=== PATIENT | female | born 1945 | race Two or more races ===

== ENCOUNTER 2016-06-11 13:30 | Emergency (ER) | payer OTHER ==
[~2016-06-11] VITALS: Ht 157.5 cm; Wt 66.7 kg
[2016-06-11 13:42] VITALS: BP 151/46
== END 2016-06-11 19:25 | disposition left against medical advice (07) ==
LOC: ER 13:33
DX: S01.91XA Laceration without foreign body of unspecified part of head, initial encounter (principal); W18.39XA Other fall on same level, initial encounter; Y93.89 Activity, other specified; Y99.9 Unspecified external cause status; Y92.89 Other specified places as the place of occurrence of the external cause; Z53.21 Procedure and treatment not carried out due to patient leaving prior to being seen by health care provider

== ENCOUNTER 2016-06-29 16:12 | Emergency (ER) | payer OTHER ==
[~2016-06-29] VITALS: Ht 157.5 cm; Wt 59.9 kg
[2016-06-29 16:30] VITALS: BP 152/77
[2016-06-29] MEDS ORDERED: ONDANSETRON HCL 4 MG/2 ML VIAL IM ONE (16:45)
[2016-06-29] MEDS ORDERED: TETANUS-DIPTH-ACEL PERTUSSIS 0.5ML SYRG IM ONE (16:45)
[2016-06-29] MEDS ORDERED: HYDROmorphone HCL 2 MG/ML VL IM ONE (16:45)
[2016-06-29] MEDS ORDERED: LIDOCAINE 1% HCL (LOCAL ANESTH.) INJ 20ML MDV IJ ONE (16:45)
[2016-06-29] MEDS ORDERED: BACITRACIN TOP OINT 1 UD PKG TOP ONE (18:00)
[2016-06-29] MEDS ORDERED: cefTRIAXone SOD 1,000 MG VL IM ONE (18:00)
== END 2016-06-29 18:32 | disposition home or self-care (01) ==
LOC: EDUNIT# 16:12 → ER 16:12
DX: S51.811A Laceration without foreign body of right forearm, initial encounter (principal); I11.0 Hypertensive heart disease with heart failure; I50.9 Heart failure, unspecified; Z23 Encounter for immunization; Z88.8 Allergy status to other drugs, medicaments and biological substances; W01.0XXA Fall on same level from slipping, tripping and stumbling without subsequent striking against object, initial encounter; Y93.89 Activity, other specified; Y99.8 Other external cause status; Y92.009 Unspecified place in unspecified non-institutional (private) residence as the place of occurrence of the external cause
CPT/HCPCS: 12036; 90471; 90715; 96372; 99284; J0696; J1170; J2001; J2405

== ENCOUNTER 2016-07-01 08:17 | Emergency (ER) | payer OTHER ==
[~2016-07-01] VITALS: Ht 210.8 cm; Wt 66.2 kg
[2016-07-01 09:28] VITALS: BP 147/77
== END 2016-07-01 10:05 | disposition home or self-care (01) ==
LOC: ER 08:21
DX: S51.811D Laceration without foreign body of right forearm, subsequent encounter (principal); I11.0 Hypertensive heart disease with heart failure; I50.9 Heart failure, unspecified; Z88.6 Allergy status to analgesic agent

== ENCOUNTER 2016-08-13 17:48 | Emergency (ER) | payer OTHER ==
[~2016-08-13] VITALS: Ht 157.5 cm; Wt 60.8 kg
[~2016-08-13 17:48] MED LIST: AMLO5TAB2 PO; CEPH500C PO; TRAM50TA2 PO
[2016-08-13] MEDS ORDERED: CLINDAMYCIN 900MG IV 50 ML IV ONE (22:00)
[2016-08-13 22:50] LABS: Basophils # (auto) 0.1 uL; Basophils % (auto) 0.4 % (0.0-2.0); Eosinophils # (auto) 0.2 uL; Hematocrit 40.8 % (36.0-46.0); Hemoglobin 13.6 g/dL (12.2-16.2); Lymphocytes # (auto) 2.8 uL; Lymphocytes % (auto) 23.4 % (10.0-50.0); Mean Corpuscular Hemoglobin 31.5 pg (28.0-32.0); Mean Corpuscular Hgb Conc. 33.3 g/dL (32.0-36.0); Mean Corpuscular Volume 94.8 fL (80.0-100.0); Mean Platelet Volume 8.7 fL (7.4-10.4); Monocytes # (auto) 0.8 uL; Neutrophils # (auto) 8.1 uL; Neutrophils % (auto) 67.2 % (37.0-80.0); Platelet Count (auto) 225 10^3/uL (140-450); Red Cell Distribution Width 14.9 % (11.6-16.0)
[2016-08-13 23:00] LABS: Albumin 4.1 g/dL (3.4-5.0); Bilirubin, Total 0.2 mg/dL (0.2-1.0); Calcium 9.1 mg/dL (8.5-10.1); Potassium 3.6 mmol/L (3.5-5.1); Total Protein 8.1 g/dL (6.4-8.2)
[2016-08-13] MEDS ORDERED: HYDROcodone-ACET 7.5/325MG TAB PO ONE (23:15)
[2016-08-14 03:01] VITALS: BP 163/92
[2016-08-14] MEDS ORDERED: BACITRACIN-POLYMYXIN B TOPICAL OINT UD TOP ONE (03:15)
== END 2016-08-14 02:31 | disposition home or self-care (01) ==
LOC: ER 17:49
DX: L03.113 Cellulitis of right upper limb (principal); I10 Essential (primary) hypertension; Z88.8 Allergy status to other drugs, medicaments and biological substances; Z48.01 Encounter for change or removal of surgical wound dressing
CPT/HCPCS: 36415; 80053; 85025; 86141; 96365; 96366; 99285; J3490

== ENCOUNTER → 2016-08-15 | Outpatient (CLI) | payer OTHER | END | disposition home or self-care (01) | LOC: LAB 09:59 | PROVIDERS: ATTEND Internal Medicine Pulmonary Disease | DX: R91.8 Other nonspecific abnormal finding of lung field (principal) | CPT/HCPCS: 86635 ==

== ENCOUNTER 2017-03-11 09:11 | Emergency (ER) | payer OTHER ==
[2017-03-11 10:10] LABS: Basophils # (auto) 0.2 uL; Basophils % (auto) 2.2 % (0.0-2.0); Eosinophils # (auto) 0.1 uL; Eosinophils % (auto) 1.4 % (0.0-7.0); Hemoglobin 13.8 g/dL (12.2-16.2); Lymphocytes # (auto) 1.8 uL; Lymphocytes % (auto) 18.1 % (10.0-50.0); Mean Corpuscular Hemoglobin 32.2 pg (28.0-32.0); Mean Corpuscular Hgb Conc. 33.7 g/dL (32.0-36.0); Mean Corpuscular Volume 95.5 fL (80.0-100.0); Mean Platelet Volume 9.1 fL (6.9-10.8); Monocytes # (auto) 0.5 uL; Monocytes % (auto) 4.6 % (0.0-12.0); Neutrophils # (auto) 7.4 uL; Neutrophils % (auto) 73.7 % (37.0-80.0); Platelet Count (auto) 198 10^3/uL (140-450); Red Cell Distribution Width 14.3 % (11.8-14.3)
[2017-03-11 10:28] LABS: Albumin 4.3 g/dL (3.4-5.0); BUN/Creatinine Ratio 25.8; Bilirubin, Total 0.4 mg/dL (0.2-1.0); Magnesium 2.2 mg/dL (1.6-2.6); Potassium 3.3 mmol/L (3.5-5.1); Total Protein 8.7 g/dL (6.4-8.2)
[2017-03-11] MEDS ORDERED: SODIUM CHLORIDE 0.9% 1,000 ML IV ONE (11:15)
[2017-03-11 11:34] LABS: Urine RBC None Seen /hpf (0 - 4)
[2017-03-11 11:48] LABS: Urine Bilirubin Negative (Negative); Urine Blood Negative /uL (Negative); Urine Color Colorless (Yellow); Urine Glucose Normal (Normal); Urine Ketone Negative (Negative); Urine Nitrite Negative (Negative); Urine Squamous Epithelial Cell FEW /hpf (<5); Urine Urobilinogen Normal (Negative); Urine pH 6.5 (5.0-8.0)
[2017-03-11] MEDS ORDERED: POTASSIUM CHL 10% (20 MEQ/15ML) 15ml ORAL SOLN PO ONE (14:45)
[2017-03-11] MEDS ORDERED: cefTRIAXone 1GM/50ML D5W 50 ML IV ONE (15:15)
[2017-03-11 17:25] VITALS: BP 164/78
== END 2017-03-11 18:03 | disposition left against medical advice (07) ==
LOC: ER 09:11
DX: I10 Essential (primary) hypertension (principal); R74.8 Abnormal levels of other serum enzymes; R41.82 Altered mental status, unspecified; R91.1 Solitary pulmonary nodule; N39.0 Urinary tract infection, site not specified; E87.6 Hypokalemia; F17.210 Nicotine dependence, cigarettes, uncomplicated
CPT/HCPCS: 36415; 70450; 71020; 71250; 80053; 80307; 81001; 82962; 83735; 84443; 84484; 85025; 93005; 94761; 96361; 96365; 99285; J0696; J7030

== ENCOUNTER → 2017-03-20 | Outpatient (CLI) | payer OTHER ==
[2017-03-20 08:35] LABS: Basophils # (auto) 0.1 uL; Basophils % (auto) 0.8 % (0.0-2.0); Eosinophils # (auto) 0.1 uL; Eosinophils % (auto) 1.7 % (0.0-7.0); Hematocrit 39.1 % (36.0-46.0); Hemoglobin 13.5 g/dL (12.2-16.2); Lymphocytes # (auto) 1.5 uL; Lymphocytes % (auto) 22.7 % (10.0-50.0); Mean Corpuscular Hemoglobin 32.9 pg (28.0-32.0); Mean Corpuscular Hgb Conc. 34.5 g/dL (32.0-36.0); Mean Corpuscular Volume 95.4 fL (80.0-100.0); Mean Platelet Volume 8.8 fL (6.9-10.8); Monocytes # (auto) 0.5 uL; Monocytes % (auto) 8.1 % (0.0-12.0); Neutrophils # (auto) 4.5 uL; Neutrophils % (auto) 66.7 % (37.0-80.0); Platelet Count (auto) 197 10^3/uL (140-450); Red Cell Distribution Width 14.2 % (11.8-14.3); White Blood Cell 6.8 10^3/uL (4.4-10.8)
[2017-03-20 08:56] LABS: BUN/Creatinine Ratio 13.2; Bilirubin, Total 0.4 mg/dL (0.2-1.0); Calcium 9.4 mg/dL (8.5-10.1); Potassium 3.3 mmol/L (3.5-5.1); Total Protein 8.2 g/dL (6.4-8.2)
== END | disposition home or self-care (01) ==
LOC: LAB 07:43
PROVIDERS: ATTEND Family Medicine
DX: I10 Essential (primary) hypertension (principal); E87.6 Hypokalemia
CPT/HCPCS: 36415; 80053; 84443; 85025

== ENCOUNTER → 2018-05-16 | Outpatient (CLI) | payer OTHER ==
[~2018-05-16] MED LIST changes: +AMLO5TAB13 PO; -AMLO5TAB2 PO
[2018-05-16 10:35] LABS: Basophils # (auto) 0.1 uL; Hemoglobin 14.7 g/dL (12.2-16.2); Mean Corpuscular Hemoglobin 34.2 pg (28.0-32.0); Monocytes # (auto) 0.6 uL; Red Cell Distribution Width 13.3 % (11.8-14.3)
[2018-05-16 10:37] LABS: Urine Bacteria NONE SEEN /hpf (None Seen); Urine Blood Negative /uL (Negative); Urine Specific Gravity 1.005 (1.001-1.035); Urine WBC 3 /hpf (0 - 5)
[2018-05-16 10:38] LABS: Basophils % (auto) 0.9 % (0.0-2.0); Eosinophils # (auto) 0.2 uL; Eosinophils % (auto) 1.7 % (0.0-7.0); Hematocrit 41.3 % (36.0-46.0); Lymphocytes # (auto) 1.8 uL; Lymphocytes % (auto) 19.9 % (10.0-50.0); Mean Corpuscular Hgb Conc. 35.5 g/dL (32.0-36.0); Mean Corpuscular Volume 96.4 fL (80.0-100.0); Monocytes % (auto) 6.2 % (0.0-12.0); Neutrophils # (auto) 6.6 uL; Neutrophils % (auto) 71.3 % (37.0-80.0); Nucleated Red Blood Cells % 0.1 %; Platelet Count (auto) 259 10^3/uL (140-450); Red Blood Cells 4.29 10^6/uL (4.0-5.20); White Blood Cell 9.3 10^3/uL (4.4-10.8)
[2018-05-16 12:29] LABS: Albumin 4.4 g/dL (3.4-5.0); Calcium 9.4 mg/dL (8.5-10.1)
[2018-05-16 12:33] LABS: BUN/Creatinine Ratio 15.9; Bilirubin, Total 0.4 mg/dL (0.2-1.0); Total Protein 8.5 g/dL (6.4-8.2)
== END | disposition home or self-care (01) ==
LOC: LAB 09:45
PROVIDERS: ATTEND Nurse Practitioner
DX: E78.5 Hyperlipidemia, unspecified (principal)
CPT/HCPCS: 36415; 80053; 80061; 81001; 82306; 83036; 84443; 85025

== ENCOUNTER → 2018-08-29 | Outpatient (CLI) | payer OTHER | END | disposition home or self-care (01) | LOC: LAB 15:09 | PROVIDERS: ATTEND Nurse Practitioner | DX: E78.5 Hyperlipidemia, unspecified (principal); I10 Essential (primary) hypertension | CPT/HCPCS: 82270 ==

== ENCOUNTER → 2018-08-30 | Outpatient (CLI) | payer OTHER ==
[2018-08-30 11:47] LABS: Basophils # (auto) 0 uL; Basophils % (auto) 0.7 % (0.0-2.0); Eosinophils # (auto) 0.1 uL; Eosinophils % (auto) 1.7 % (0.0-7.0); Hematocrit 40.2 % (36.0-46.0); Hemoglobin 13.7 g/dL (12.2-16.2); Lymphocytes # (auto) 1.5 uL; Lymphocytes % (auto) 24.2 % (10.0-50.0); Mean Corpuscular Hemoglobin 32.7 pg (28.0-32.0); Mean Corpuscular Hgb Conc. 34.1 g/dL (32.0-36.0); Mean Corpuscular Volume 95.9 fL (80.0-100.0); Monocytes # (auto) 0.5 uL; Monocytes % (auto) 7.7 % (0.0-12.0); Neutrophils # (auto) 4.1 uL; Neutrophils % (auto) 65.7 % (37.0-80.0); Nucleated Red Blood Cells % 0.1 %; Platelet Count (auto) 225 10^3/uL (140-450); Red Blood Cells 4.19 10^6/uL (4.0-5.20); Red Cell Distribution Width 13.5 % (11.8-14.3); White Blood Cell 6.3 10^3/uL (4.4-10.8)
[2018-08-30 11:51] LABS: Urine Bacteria MOD /hpf (None Seen); Urine Blood Negative /uL (Negative); Urine Specific Gravity 1.006 (1.001-1.035); Urine WBC 2 /hpf (0 - 5)
[2018-08-30 12:09] LABS: Albumin 4.2 g/dL (3.4-5.0); Calcium 9.3 mg/dL (8.5-10.1)
[2018-08-30 12:14] LABS: BUN/Creatinine Ratio 13.7; Bilirubin, Total 0.4 mg/dL (0.2-1.0)
== END | disposition home or self-care (01) ==
LOC: LAB 10:23
PROVIDERS: ATTEND Nurse Practitioner
DX: E78.5 Hyperlipidemia, unspecified (principal); I11.0 Hypertensive heart disease with heart failure; I50.9 Heart failure, unspecified
CPT/HCPCS: 36415; 80053; 80061; 81001; 82306; 83036; 84443; 85025

== ENCOUNTER → 2018-12-21 | Outpatient (CLI) | payer OTHER ==
[~2018-12-21] MED LIST changes: -AMLO5TAB13 PO; +AMLO5TAB15 PO
[2018-12-21 10:21] LABS: Basophils # (auto) 0.1 uL; Basophils % (auto) 0.9 % (0.0-2.0); Eosinophils # (auto) 0.1 uL; Eosinophils % (auto) 1.6 % (0.0-7.0); Hematocrit 38.2 % (36.0-46.0); Hemoglobin 13.3 g/dL (12.2-16.2); Lymphocytes # (auto) 1.6 uL; Lymphocytes % (auto) 26.3 % (10.0-50.0); Mean Corpuscular Hemoglobin 32.4 pg (28.0-32.0); Mean Corpuscular Hgb Conc. 34.9 g/dL (32.0-36.0); Mean Corpuscular Volume 92.8 fL (80.0-100.0); Monocytes # (auto) 0.4 uL; Monocytes % (auto) 6.8 % (0.0-12.0); Neutrophils # (auto) 3.9 uL; Neutrophils % (auto) 64.4 % (37.0-80.0); Platelet Count (auto) 245 10^3/uL (140-450); Red Blood Cells 4.11 10^6/uL (4.0-5.20); White Blood Cell 6.1 10^3/uL (4.4-10.8)
[2018-12-21 10:24] LABS: Urine Bacteria NONE SEEN /hpf (None Seen); Urine Blood Negative /uL (Negative); Urine Specific Gravity 1.005 (1.001-1.035); Urine WBC 2 /hpf (0 - 5)
[2018-12-21 11:07] LABS: Albumin 4.3 g/dL (3.4-5.0); Calcium 9.5 mg/dL (8.5-10.1); Potassium 4.3 mmol/L (3.5-5.1)
[2018-12-21 11:12] LABS: BUN/Creatinine Ratio 11.5; Bilirubin, Total 0.6 mg/dL (0.2-1.0); Total Protein 8.5 g/dL (6.4-8.2)
== END | disposition home or self-care (01) ==
LOC: LAB 09:33
PROVIDERS: ATTEND Nurse Practitioner
DX: E78.5 Hyperlipidemia, unspecified (principal)
CPT/HCPCS: 36415; 80053; 80061; 81001; 84443; 85025

== ENCOUNTER 2021-02-10 13:25 | Inpatient (IN) | payer MEDICARE, OTHER ==
[~2021-02-10] VITALS: Ht 157.5 cm; Wt 54.3 kg
[~2021-02-10 13:25] MED LIST changes: +AMLO-489 PO; -AMLO5TAB15 PO
[2021-02-10 14:33] LABS: Basophils # (auto) 0.1 10 ^3/uL (0-0.2); Basophils % (auto) 1.1 % (0.0-2.0); Eosinophils # (auto) 0.1 10 ^3/uL (0-0.8); Hematocrit 36.8 % (36.0-46.0); Hemoglobin 12.6 g/dL (12.2-16.2); Lymphocytes # (auto) 1.2 10 ^3/uL (0.4-5.4); Lymphocytes % (auto) 17.1 % (10.0-50.0); Mean Corpuscular Hemoglobin 31.7 pg (28.0-32.0); Mean Corpuscular Hgb Conc. 34.3 g/dL (32.0-36.0); Mean Corpuscular Volume 92.4 fL (80.0-100.0); Monocytes # (auto) 0.4 10 ^3/uL (0-1.3); Monocytes % (auto) 6.5 % (0.0-12.0); Neutrophils # (auto) 5.1 10 ^3/uL (1.6-8.6); Neutrophils % (auto) 74.3 % (37.0-80.0); Nucleated Red Blood Cells % 0.1 %; Red Blood Cells 3.98 10^6/uL (4.0-5.20); Red Cell Distribution Width 14.7 % (11.8-14.3); White Blood Cell 6.8 10^3/uL (4.4-10.8)
[2021-02-10 14:48] LABS: Albumin 3.5 g/dL (3.4-5.0); BUN/Creatinine Ratio 16.7; Calcium 8.4 mg/dL (8.5-10.1); Magnesium 2.2 mg/dL (1.6-2.6); Potassium 3.3 mmol/L (3.5-5.1)
[2021-02-10 14:52] LABS: Bilirubin, Total 0.5 mg/dL (0.2-1.0); Total Protein 7.5 g/dL (6.4-8.2)
[2021-02-10 15:50] LABS: Urine Bacteria NONE SEEN /hpf (None Seen); Urine Blood Negative /uL (Negative); Urine Hyaline Cast FEW /lpf (0 - 2); Urine Specific Gravity 1.014 (1.001-1.035); Urine WBC 27 /hpf (0 - 5)
[2021-02-10 15:59] LABS: Amphetamine Screen, Urine NEGATIVE (NEGATIVE); Barbiturate Scree,Urine NEGATIVE (NEGATIVE); Benzodiazephine Screen, Urine NEGATIVE (NEGATIVE); Cannabinoid Screen, Urine NEGATIVE (NEGATIVE); Cocaine Screen, Urine NEGATIVE (NEGATIVE); Opiate Scree,Urine NEGATIVE (NEGATIVE); Phencyclidine Screen, Urine NEGATIVE (NEGATIVE)
[2021-02-10] MEDS ORDERED: ASPirin 81 mg TAB PO ONE (17:30)
[2021-02-10] MEDS ORDERED: dilTIAZem 25 MG/5 ML VIAL IV ONE (17:30)
[2021-02-10] MEDS ORDERED: MORPHINE SULFATE INJECTION 2 MG/ML SYRG IV PRN (19:00)
[2021-02-10] MEDS ORDERED: ACETAMINOPHEN 500 MG TAB PO PRN (19:00)
[2021-02-10] MEDS ORDERED: traMADol HCL 50 MG TAB PO PRN ×2 (19:00→19:45)
[2021-02-10] MEDS ORDERED: NITROGLYCERIN 0.4 MG SL TAB SL PRN (19:00)
[2021-02-10] MEDS ORDERED: diphenhdrAMINE HCL 25 MG CAP PO PRN (19:00)
[2021-02-10] MEDS ORDERED: SOD CHL 0.9%/ KCL 20MEQ 1,000 ML IV ONE (19:00)
[2021-02-10] MEDS ORDERED: ONDANSETRON HCL 4 MG/2 ML VIAL IV PRN (19:00)
[2021-02-10] MEDS: PANTOPRAZOLE 40 MG TAB PO SCH (22:10)
[2021-02-10] MEDS: METOPROLOL TARTRATE 25 MG TAB PO SCH (22:11)
[2021-02-11] VITALS (8 sets, daily range): BP systolic 135–162; BP diastolic 83–111
[2021-02-11 09:10] LABS: Magnesium 2.5 mg/dL (1.6-2.6); Potassium 3.2 mmol/L (3.5-5.1)
[2021-02-11] MEDS: cefTRIAXone 1GM/50ML D5W 50 ML IV SCH (09:19)
[2021-02-11] MEDS: PANTOPRAZOLE 40 MG TAB PO SCH (09:20)
[2021-02-11] MEDS: METOPROLOL TARTRATE 25 MG TAB PO SCH ×2 (09:20→22:05)
[2021-02-11] MEDS ORDERED: POTASSIUM CHL 20 Meq TABLET PO ONE ×2 (10:00→10:45)
[2021-02-11] MEDS ORDERED: ASPirin-EC 81 mg tab PO SCH (10:00)
[2021-02-11] MEDS ORDERED: THIAMINE 100mg/ml INJ (200mg/2ml VIAL) IV ONE (10:00)
[2021-02-11 13:22] LABS: Hepatitis A Ab IgM Negative
[2021-02-11 13:52] LABS: Hepatitis B Core IgM Negative; Hepatitis B Surface Antigen Negative (Negative)
[2021-02-11 14:37] LABS: Hepatitis C Antibody Positive (Negative)
[2021-02-12 05:51] VITALS: BP 159/113
[2021-02-12 06:09] LABS: Calcium 8.8 mg/dL (8.5-10.1)
[2021-02-12 08:40] VITALS: BP 163/106
[2021-02-12] MEDS ORDERED: CYANOCOBALAMIN (B-12) 1000 MCG/1 ML VIAL SUBCUT ONE (10:00)
[2021-02-12] MEDS: APIXABAN 5 MG TAB PO SCH ×2 (10:10→22:11)
[2021-02-12] MEDS: METOPROLOL TARTRATE 25 MG TAB PO SCH ×2 (10:10→22:12)
[2021-02-12] MEDS: SACUBITRIL-VALSARTAN 24mg/26mg TAB PO SCH ×2 (10:10→22:11)
[2021-02-12] MEDS: PANTOPRAZOLE 40 MG TAB PO SCH (10:11)
[2021-02-12] MEDS: cefTRIAXone 1GM/50ML D5W 50 ML IV SCH (10:11)
[2021-02-12] MEDS: THIAMINE 100mg/ml INJ (200mg/2ml VIAL) IV SCH (10:13)
[2021-02-12] MEDS: CYANOCOBALAMIN 500 MCG TAB PO SCH (10:31)
[2021-02-12 13:00] VITALS: BP 164/115
[2021-02-12 17:00] VITALS: BP 157/100
[2021-02-12 22:00] VITALS: BP 164/105
[2021-02-13 05:00] VITALS: BP 147/101
[2021-02-13 09:00] VITALS: BP 156/101
[2021-02-13] MEDS: APIXABAN 5 MG TAB PO SCH ×2 (09:51→21:57)
[2021-02-13] MEDS: PANTOPRAZOLE 40 MG TAB PO SCH (09:51)
[2021-02-13] MEDS: CYANOCOBALAMIN 500 MCG TAB PO SCH (09:51)
[2021-02-13] MEDS: cefTRIAXone 1GM/50ML D5W 50 ML IV SCH (09:52)
[2021-02-13] MEDS: SACUBITRIL-VALSARTAN 24mg/26mg TAB PO SCH ×2 (09:53→21:57)
[2021-02-13] MEDS: METOPROLOL TARTRATE 25 MG TAB PO SCH (09:53)
[2021-02-13] MEDS: THIAMINE 100mg/ml INJ (200mg/2ml VIAL) IV SCH (09:56)
[2021-02-13 10:30] VITALS: BP 125/83
[2021-02-13 13:00] VITALS: BP 133/89
[2021-02-13 18:01] VITALS: BP 140/91
[2021-02-13 21:32] VITALS: BP 146/88
[2021-02-13] MEDS: METOPROLOL TARTRATE 50 MG TAB PO SCH (21:58)
[2021-02-14 05:00] VITALS: BP 165/94
[2021-02-14] MEDS: cefTRIAXone 1GM/50ML D5W 50 ML IV SCH (08:41)
[2021-02-14 09:00] VITALS: BP 136/75
[2021-02-14] MEDS: SACUBITRIL-VALSARTAN 24mg/26mg TAB PO SCH ×2 (09:56→21:46)
[2021-02-14] MEDS: APIXABAN 5 MG TAB PO SCH ×2 (09:56→21:47)
[2021-02-14] MEDS: THIAMINE HCL 100 MG TAB PO SCH (09:57)
[2021-02-14] MEDS: CYANOCOBALAMIN 500 MCG TAB PO SCH (09:57)
[2021-02-14] MEDS: PANTOPRAZOLE 40 MG TAB PO SCH (09:57)
[2021-02-14] MEDS: METOPROLOL TARTRATE 50 MG TAB PO SCH ×2 (09:57→21:47)
[2021-02-14 13:00] VITALS: BP 150/83
[2021-02-14 17:00] VITALS: BP 155/94
[2021-02-14] MEDS ORDERED: hydrALAZINE HCL 20 MG/ML VL IV PRN (18:15)
[2021-02-14 22:00] VITALS: BP 120/81
[2021-02-15 05:00] VITALS: BP 162/98
[2021-02-15 05:17] LABS: Basophils # (auto) 0.1 10 ^3/uL (0-0.2); Basophils % (auto) 1.2 % (0.0-2.0); Eosinophils # (auto) 0.2 10 ^3/uL (0-0.8); Eosinophils % (auto) 2.2 % (0.0-7.0); Hematocrit 39.5 % (36.0-46.0); Hemoglobin 13.6 g/dL (12.2-16.2); Lymphocytes # (auto) 1.7 10 ^3/uL (0.4-5.4); Lymphocytes % (auto) 22.4 % (10.0-50.0); Mean Corpuscular Hemoglobin 31.6 pg (28.0-32.0); Mean Corpuscular Hgb Conc. 34.3 g/dL (32.0-36.0); Mean Corpuscular Volume 92.1 fL (80.0-100.0); Monocytes # (auto) 0.6 10 ^3/uL (0-1.3); Monocytes % (auto) 7.6 % (0.0-12.0); Neutrophils # (auto) 5.2 10 ^3/uL (1.6-8.6); Neutrophils % (auto) 66.6 % (37.0-80.0); Nucleated Red Blood Cells % 0.1 %; Red Blood Cells 4.29 10^6/uL (4.0-5.20); White Blood Cell 7.7 10^3/uL (4.4-10.8)
[2021-02-15 05:31] LABS: INR 1.05 (0.9-1.15); Partial Thromboplastin Time 26.8 sec (23.6-33.0)
[2021-02-15 05:44] LABS: Albumin 3.3 g/dL (3.4-5.0); Calcium 9.2 mg/dL (8.5-10.1); Magnesium 2.5 mg/dL (1.6-2.6); Potassium 4.1 mmol/L (3.5-5.1)
[2021-02-15 05:48] LABS: BUN/Creatinine Ratio 27.8; Bilirubin, Total 0.4 mg/dL (0.2-1.0); Phosphorus 3.6 mg/dL (2.5-4.90); Total Protein 6.8 g/dL (6.4-8.2)
[2021-02-15 09:00] VITALS: BP 143/91
[2021-02-15] MEDS: PANTOPRAZOLE 40 MG TAB PO SCH (09:34)
[2021-02-15] MEDS: METOPROLOL TARTRATE 50 MG TAB PO SCH ×2 (09:35→21:58)
[2021-02-15] MEDS: APIXABAN 5 MG TAB PO SCH ×2 (09:36→21:58)
[2021-02-15] MEDS: SACUBITRIL-VALSARTAN 24mg/26mg TAB PO SCH ×2 (09:36→21:58)
[2021-02-15] MEDS: CYANOCOBALAMIN 500 MCG TAB PO SCH (09:37)
[2021-02-15] MEDS: cefTRIAXone 1GM/50ML D5W 50 ML IV SCH (09:38)
[2021-02-15] MEDS: THIAMINE HCL 100 MG TAB PO SCH (09:38)
[2021-02-15 13:00] VITALS: BP 164/101
[2021-02-15 17:00] VITALS: BP 159/70
[2021-02-15 22:00] VITALS: BP 137/63
[2021-02-16 05:00] VITALS: BP 128/89
[2021-02-16 08:00] VITALS: BP 164/93
[2021-02-16] MEDS: cefTRIAXone 1GM/50ML D5W 50 ML IV SCH (08:15)
[2021-02-16 08:30] VITALS: BP 161/95
[2021-02-16] MEDS: CYANOCOBALAMIN 500 MCG TAB PO SCH (09:52)
[2021-02-16] MEDS: METOPROLOL TARTRATE 50 MG TAB PO SCH (09:52)
[2021-02-16] MEDS: PANTOPRAZOLE 40 MG TAB PO SCH (09:53)
[2021-02-16] MEDS: SACUBITRIL-VALSARTAN 24mg/26mg TAB PO SCH (09:53)
[2021-02-16] MEDS: THIAMINE HCL 100 MG TAB PO SCH (09:53)
[2021-02-16] MEDS: APIXABAN 5 MG TAB PO SCH (09:53)
[2021-02-16 13:00] VITALS: BP 135/101
[2021-02-16 13:47] VITALS: BP 135/101
== END 2021-02-16 14:46 | DRG 308 ==
LOC: EDBD 13:25 → EDUNIT# 13:25 → ER 13:27 → TELE 18:50 → TELE-CENTR 02-11 01:20 → CENTRAL 02-15 11:27
PROVIDERS: ADMIT Nurse Practitioner Acute Care; ATTEND Internal Medicine
DX: I48.91 Unspecified atrial fibrillation (principal); N17.0 Acute kidney failure with tubular necrosis; I50.23 Acute on chronic systolic (congestive) heart failure; G92 Toxic encephalopathy; N39.0 Urinary tract infection, site not specified; D68.69 Other thrombophilia; F03.90 Unspecified dementia, unspecified severity, without behavioral disturbance, psychotic disturbance, mood disturbance, and anxiety; E87.6 Hypokalemia; E53.8 Deficiency of other specified B group vitamins; E78.5 Hyperlipidemia, unspecified; F17.210 Nicotine dependence, cigarettes, uncomplicated; I11.0 Hypertensive heart disease with heart failure; Z88.8 Allergy status to other drugs, medicaments and biological substances; Z86.19 Personal history of other infectious and parasitic diseases; Z20.822 Contact with and (suspected) exposure to COVID-19
CPT/HCPCS: 36415; 70450; 71045; 80048; 80053; 80061; 80074; 80307; 80320; 81001; 82607; 83605; 83735; 83880; 84100; 84132; 84443; 84484; 85025; 85610; 85730; 87086; 87426; 93005; 93306; 96361; 96365; 96375; G0378; J0696

== ENCOUNTER 2021-03-22 20:08 | Inpatient (IN) | payer MEDICARE, OTHER ==
[~2021-03-22] VITALS: Ht 162.6 cm; Wt 55.3 kg
[2021-03-22 22:03] LABS: Basophils # (auto) 0.1 10 ^3/uL (0-0.2); Basophils % (auto) 0.9 % (0.0-2.0); Eosinophils # (auto) 0.3 10 ^3/uL (0-0.8); Eosinophils % (auto) 2.6 % (0.0-7.0); Hematocrit 39.4 % (36.0-46.0); Hemoglobin 13.3 g/dL (12.2-16.2); Lymphocytes # (auto) 1.6 10 ^3/uL (0.4-5.4); Mean Corpuscular Hemoglobin 30.6 pg (28.0-32.0); Mean Corpuscular Hgb Conc. 33.8 g/dL (32.0-36.0); Mean Corpuscular Volume 90.6 fL (80.0-100.0); Monocytes # (auto) 0.9 10 ^3/uL (0-1.3); Monocytes % (auto) 9.2 % (0.0-12.0); Neutrophils # (auto) 7.2 10 ^3/uL (1.6-8.6); Neutrophils % (auto) 71.3 % (37.0-80.0); Nucleated Red Blood Cells % 0.1 %; Red Blood Cells 4.35 10^6/uL (4.0-5.20); White Blood Cell 10.1 10^3/uL (4.4-10.8)
[2021-03-22 22:21] LABS: Alanine Aminotransferase 80 U/L (13-56); Albumin 3.1 g/dL (3.4-5.0); Anion Gap 7 (5-15); Aspartate Aminotransferase 90 U/L (15-37); Blood Alcohol < 3.0 mg/dL (0-5); Blood Urea Nitrogen 34 mg/dL (7-18); Calcium 8.9 mg/dL (8.5-10.1); Carbon Dioxide 25 mmol/L (21-32); Chloride 103 mmol/L (98-107); GFR African American 83 mL/min; GFR Non-African American 69 mL/min; Glucose 113 mg/dL (74-106); Magnesium 2.6 mg/dL (1.6-2.6); Potassium 3.8 mmol/L (3.5-5.1); Sodium 135 mmol/L (136-145)
[2021-03-22 22:24] LABS: Alkaline Phosphatase 75 U/L (45-117); Bilirubin, Total 0.3 mg/dL (0.2-1.0); Total Protein 8.3 g/dL (6.4-8.2)
[2021-03-23] MEDS ORDERED: ASPirin 325 MG TAB PO ONE (01:00)
[2021-03-23] MEDS ORDERED: MORPHINE SULFATE INJECTION 2 MG/ML SYRG IV PRN (02:45)
[2021-03-23] MEDS ORDERED: ONDANSETRON HCL 4 MG/2 ML VIAL IV PRN (02:45)
[2021-03-23] MEDS ORDERED: NITROGLYCERIN 0.4 MG SL TAB SL PRN (02:45)
[2021-03-23 04:47] LABS: INR 1.47 (0.9-1.15); Partial Thromboplastin Time 40.1 sec (23.6-33.0)
[2021-03-23] MEDS ORDERED: dilTIAZem 25 MG/5 ML VIAL IV ONE (05:15)
[2021-03-23 05:40] LABS: Urine Bacteria FEW /hpf (None Seen); Urine Blood Negative /uL (Negative); Urine Hyaline Cast FEW /lpf (0 - 2); Urine Specific Gravity 1.021 (1.001-1.035); Urine WBC 10 /hpf (0 - 5)
[2021-03-23] MEDS ORDERED: amLODIPine BESYLATE 5 MG TAB PO SCH (10:00)
[2021-03-23] MEDS ORDERED: METOPROLOL TARTRATE 25 MG TAB PO SCH (10:00)
[2021-03-23] MEDS: PANTOPRAZOLE 40 MG TAB PO SCH (10:06)
[2021-03-23] MEDS: APIXABAN 5 MG TAB PO SCH ×2 (10:06→20:15)
[2021-03-23] MEDS: ASPirin 81 mg TAB PO SCH (10:06)
[2021-03-23] MEDS ORDERED: DIGOXIN (250MCG/ML) 2 ML AMPULE IV ONE (10:15)
[2021-03-23] MEDS ORDERED: FUROSEMIDE 40 MG/4 ML VIAL IV ONE (10:15)
[2021-03-23] MEDS ORDERED: ASPI-543 PO (11:09)
[2021-03-23] MEDS ORDERED: cefTRIAXone 1GM/50ML D5W 50 ML IV ONE (12:00)
[2021-03-23] MEDS: FUROSEMIDE 40 MG/4 ML VIAL IV SCH (18:09)
[2021-03-23] MEDS: ACETAMINOPHEN 325 MG TAB PO PRN (19:56)
[2021-03-23 19:57] VITALS: BP 153/70
[2021-03-23] MEDS: METOPROLOL TARTRATE 25 MG TAB PO SCH (20:19)
[2021-03-24 05:00] VITALS: BP 135/70
[2021-03-24] MEDS: FUROSEMIDE 40 MG/4 ML VIAL IV SCH ×2 (06:04→17:42)
[2021-03-24 06:45] LABS: Basophils # (auto) 0.1 10 ^3/uL (0-0.2); Basophils % (auto) 1.1 % (0.0-2.0); Eosinophils # (auto) 0.3 10 ^3/uL (0-0.8); Eosinophils % (auto) 3.7 % (0.0-7.0); Hematocrit 39.3 % (36.0-46.0); Hemoglobin 13.6 g/dL (12.2-16.2); Lymphocytes # (auto) 1.1 10 ^3/uL (0.4-5.4); Lymphocytes % (auto) 14.1 % (10.0-50.0); Mean Corpuscular Hemoglobin 31.2 pg (28.0-32.0); Mean Corpuscular Hgb Conc. 34.5 g/dL (32.0-36.0); Mean Corpuscular Volume 90.6 fL (80.0-100.0); Monocytes # (auto) 0.7 10 ^3/uL (0-1.3); Monocytes % (auto) 8.3 % (0.0-12.0); Neutrophils # (auto) 5.7 10 ^3/uL (1.6-8.6); Neutrophils % (auto) 72.8 % (37.0-80.0); Nucleated Red Blood Cells % 0.1 %; Red Blood Cells 4.34 10^6/uL (4.0-5.20); Red Cell Distribution Width 14.6 % (11.8-14.3); White Blood Cell 7.8 10^3/uL (4.4-10.8)
[2021-03-24 08:30] VITALS: BP 123/77
[2021-03-24] MEDS: cefTRIAXone 1GM/50ML D5W 50 ML IV SCH (08:46)
[2021-03-24 09:00] VITALS: BP 123/77
[2021-03-24] MEDS: METOPROLOL TARTRATE 25 MG TAB PO SCH ×2 (09:14→22:47)
[2021-03-24] MEDS: PANTOPRAZOLE 40 MG TAB PO SCH (09:14)
[2021-03-24] MEDS: DIGOXIN 0.125 MG TAB PO SCH (09:14)
[2021-03-24] MEDS: APIXABAN 5 MG TAB PO SCH ×2 (09:14→22:47)
[2021-03-24] MEDS: LOSARTAN POTASSIUM 25 MG TAB PO SCH (09:15)
[2021-03-24] MEDS: ASPirin 81 mg TAB PO SCH (09:16)
[2021-03-24] MEDS: ACETAMINOPHEN 325 MG TAB PO PRN (09:19)
[2021-03-24 13:00] VITALS: BP 123/96
[2021-03-24 17:00] VITALS: BP 113/69
[2021-03-24] MEDS ORDERED: METOPROLOL TARTRATE 1MG/1ML-5ML VIAL IV ONE (19:00)
[2021-03-24 21:00] VITALS: BP 114/73
[2021-03-25] MEDS ORDERED: METOPROLOL TARTRATE 1MG/1ML-5ML VIAL IV PRN
[2021-03-25 05:02] VITALS: BP 108/65
[2021-03-25] MEDS: FUROSEMIDE 40 MG/4 ML VIAL IV SCH (06:14)
[2021-03-25] MEDS: cefTRIAXone 1GM/50ML D5W 50 ML IV SCH (08:27)
[2021-03-25] MEDS: LOSARTAN POTASSIUM 25 MG TAB PO SCH (08:29)
[2021-03-25] MEDS: APIXABAN 5 MG TAB PO SCH ×2 (08:29→22:47)
[2021-03-25] MEDS: ASPirin 81 mg TAB PO SCH (08:29)
[2021-03-25] MEDS: DIGOXIN 0.125 MG TAB PO SCH (08:30)
[2021-03-25] MEDS: METOPROLOL TARTRATE 25 MG TAB PO SCH ×2 (08:30→22:48)
[2021-03-25 09:00] VITALS: BP 124/65
[2021-03-25] MEDS ORDERED: AMIODARONE HCL 200 MG TAB PO SCH (10:00)
[2021-03-25] MEDS: AMIODARONE HCL 200 MG TAB PO SCH ×2 (10:36→20:57)
[2021-03-25 13:00] VITALS: BP 117/72
[2021-03-25 13:10] LABS: BUN/Creatinine Ratio 39.7; Potassium 4.5 mmol/L (3.5-5.1)
[2021-03-25 16:47] VITALS: BP 122/67
[2021-03-25] MEDS: FUROSEMIDE 20 MG TAB PO SCH (17:34)
[2021-03-25 22:00] VITALS: BP 109/69
[2021-03-26 04:54] VITALS: BP 119/69
[2021-03-26] MEDS: FUROSEMIDE 20 MG TAB PO SCH (05:58)
[2021-03-26] MEDS: cefTRIAXone 1GM/50ML D5W 50 ML IV SCH (08:08)
[2021-03-26 09:00] VITALS: BP 100/68
[2021-03-26] MEDS: APIXABAN 5 MG TAB PO SCH (09:33)
[2021-03-26] MEDS: DIGOXIN 0.125 MG TAB PO SCH (09:34)
[2021-03-26] MEDS: LOSARTAN POTASSIUM 25 MG TAB PO SCH (09:36)
[2021-03-26] MEDS: AMIODARONE HCL 200 MG TAB PO SCH (09:36)
[2021-03-26] MEDS: METOPROLOL TARTRATE 25 MG TAB PO SCH (09:36)
[2021-03-26] MEDS ORDERED: ASPirin 81 mg TAB PO SCH (10:00)
[2021-03-26 13:00] VITALS: BP 106/80
[2021-03-26 15:46] VITALS: BP 100/68
== END 2021-03-26 16:16 | DRG 871 ==
LOC: ER 20:08 → EDBD 20:08 → TELE 03-23 02:50 → TELE-CENTR 03-23 19:41
PROVIDERS: ADMIT Nurse Practitioner; ATTEND Family Medicine
DX: A41.9 Sepsis, unspecified organism (principal); G93.41 Metabolic encephalopathy; I21.A1 Myocardial infarction type 2; I50.23 Acute on chronic systolic (congestive) heart failure; D68.9 Coagulation defect, unspecified; N39.0 Urinary tract infection, site not specified; E44.0 Moderate protein-calorie malnutrition; Z20.822 Contact with and (suspected) exposure to COVID-19; F03.90 Unspecified dementia, unspecified severity, without behavioral disturbance, psychotic disturbance, mood disturbance, and anxiety; I48.91 Unspecified atrial fibrillation; E78.00 Pure hypercholesterolemia, unspecified; E78.5 Hyperlipidemia, unspecified; I11.0 Hypertensive heart disease with heart failure; Z79.01 Long term (current) use of anticoagulants; Z88.8 Allergy status to other drugs, medicaments and biological substances; Z86.19 Personal history of other infectious and parasitic diseases
CPT/HCPCS: 36415; 70450; 71045; 80048; 80053; 80162; 80320; 81001; 83605; 83735; 83880; 84443; 84484; 85025; 85610; 85652; 85730; 86141; 87081; 87086; 87426; 93005; 96365; 96375; G0378; J0696

== ENCOUNTER 2021-06-05 18:55 | Emergency (ER) | payer MEDICARE, OTHER ==
[~2021-06-05] VITALS: Ht 162.6 cm; Wt 56.7 kg
[~2021-06-05 18:55] MED LIST changes: +ASPI-543 PO
[2021-06-05 19:30] VITALS: BP 124/56
== END 2021-06-06 15:30 | disposition home or self-care (01) ==
LOC: EDBD 18:55 → ER 18:59
DX: S00.03XA Contusion of scalp, initial encounter (principal); W18.39XA Other fall on same level, initial encounter; Y93.89 Activity, other specified; Y92.89 Other specified places as the place of occurrence of the external cause; Y99.8 Other external cause status
CPT/HCPCS: 70450

== ENCOUNTER → 2021-06-10 | Emergency (ER) | payer MEDICARE, OTHER ==
[~2021-06-10] VITALS: Ht 157.5 cm; Wt 52.2 kg
[2021-06-10 11:37] LABS: Urine Bacteria NONE SEEN /hpf (None Seen); Urine Blood Negative /uL (Negative); Urine Specific Gravity 1.008 (1.001-1.035); Urine WBC 10 /hpf (0 - 5)
[2021-06-10 11:43] LABS: Basophils # (auto) 0.1 10 ^3/uL (0-0.2); Basophils % (auto) 0.6 % (0.0-2.0); Eosinophils # (auto) 0.1 10 ^3/uL (0-0.8); Eosinophils % (auto) 1.2 % (0.0-7.0); Hematocrit 29.9 % (36.0-46.0); Hemoglobin 10.3 g/dL (12.2-16.2); Lymphocytes # (auto) 1.3 10 ^3/uL (0.4-5.4); Lymphocytes % (auto) 11.7 % (10.0-50.0); Mean Corpuscular Hemoglobin 31.4 pg (28.0-32.0); Mean Corpuscular Hgb Conc. 34.6 g/dL (32.0-36.0); Mean Corpuscular Volume 90.9 fL (80.0-100.0); Monocytes # (auto) 0.6 10 ^3/uL (0-1.3); Monocytes % (auto) 5.1 % (0.0-12.0); Neutrophils # (auto) 9.2 10 ^3/uL (1.6-8.6); Neutrophils % (auto) 81.4 % (37.0-80.0); Nucleated Red Blood Cells % 0.1 %; Red Blood Cells 3.29 10^6/uL (4.0-5.20); Red Cell Distribution Width 16.6 % (11.8-14.3); White Blood Cell 11.3 10^3/uL (4.4-10.8)
[2021-06-10 11:50] LABS: Potassium 4.4 mmol/L (3.5-5.1)
[2021-06-10 11:55] LABS: BUN/Creatinine Ratio 23.5; Bilirubin, Total 0.3 mg/dL (0.2-1.0); Total Protein 8.2 g/dL (6.4-8.2)
[2021-06-10 15:16] VITALS: BP 161/61
== END | disposition home or self-care (01) ==
LOC: EDUNIT# 10:29 → ER 10:30 → EDBD 10:30
DX: S00.03XA Contusion of scalp, initial encounter (principal); E78.5 Hyperlipidemia, unspecified; I10 Essential (primary) hypertension; W18.39XA Other fall on same level, initial encounter; Y93.89 Activity, other specified; Y92.89 Other specified places as the place of occurrence of the external cause; Y99.8 Other external cause status
CPT/HCPCS: 36415; 70450; 80053; 81001; 85025; 93005

== ENCOUNTER 2021-09-13 09:17 | Inpatient (IN) | payer MEDICARE, OTHER ==
[2021-09-13] VITALS (23 sets, daily range): BP systolic 137–189; BP diastolic 52–75
[~2021-09-13] VITALS: Ht 154.9 cm; Wt 48.7 kg
[2021-09-13] MEDS ORDERED: DOPamine 1600MCG/ML D5W 250 ML IV ONE ×2 (09:53→10:00)
[2021-09-13] MEDS ORDERED: GLUCAGON HYDROCHLORIDE (RDNA) 1 MG VIAL ONE (09:56)
[2021-09-13] MEDS ORDERED: GLUCAGON HYDROCHLORIDE (RDNA) 1 MG VIAL IV ONE ×3 (10:00→10:30)
[2021-09-13 10:15] LABS: Basophils # (auto) 0 10 ^3/uL (0-0.2); Basophils % (auto) 0.3 % (0.0-2.0); Eosinophils # (auto) 0.1 10 ^3/uL (0-0.8); Eosinophils % (auto) 0.6 % (0.0-7.0); Hematocrit 33.7 % (36.0-46.0); Hemoglobin 11.5 g/dL (12.2-16.2); Lymphocytes # (auto) 1.2 10 ^3/uL (0.4-5.4); Lymphocytes % (auto) 10.9 % (10.0-50.0); Mean Corpuscular Hemoglobin 29.7 pg (28.0-32.0); Mean Corpuscular Volume 87.2 fL (80.0-100.0); Monocytes # (auto) 0.8 10 ^3/uL (0-1.3); Neutrophils # (auto) 9.1 10 ^3/uL (1.6-8.6); Neutrophils % (auto) 81.2 % (37.0-80.0); Nucleated Red Blood Cells % 0.1 %; Red Blood Cells 3.87 10^6/uL (4.0-5.20); Red Cell Distribution Width 17.9 % (11.8-14.3); White Blood Cell 11.3 10^3/uL (4.4-10.8)
[2021-09-13] MEDS ORDERED: ALBUTEROL SULF 2.5 MG/0.5ML(0.5%) NEB SOLN NEB ONE (10:30)
[2021-09-13 10:34] LABS: Albumin 3.4 g/dL (3.4-5.0); Calcium 8.6 mg/dL (8.5-10.1); Potassium 3.6 mmol/L (3.5-5.1)
[2021-09-13 10:39] LABS: BUN/Creatinine Ratio 30.4; Bilirubin, Total 0.6 mg/dL (0.2-1.0); Total Protein 7.7 g/dL (6.4-8.2)
[2021-09-13 10:53] LABS: INR 1.23 (0.9-1.15)
[2021-09-13 12:30] LABS: Urine Bacteria FEW /hpf (None Seen); Urine Blood Negative /uL (Negative); Urine Specific Gravity 1.007 (1.001-1.035); Urine WBC <1 /hpf (0 - 5)
[2021-09-13] MEDS ORDERED: ONDANSETRON HCL 4 MG/2 ML VIAL IV PRN (15:15)
[2021-09-14] VITALS (84 sets, daily range): BP systolic 72–222; BP diastolic 21–154
[2021-09-14 04:25] LABS: Basophils # (auto) 0 10 ^3/uL (0-0.2); Basophils % (auto) 0.3 % (0.0-2.0); Eosinophils # (auto) 0 10 ^3/uL (0-0.8); Eosinophils % (auto) 0.2 % (0.0-7.0); Hematocrit 34.5 % (36.0-46.0); Hemoglobin 11.9 g/dL (12.2-16.2); Lymphocytes % (auto) 8.9 % (10.0-50.0); Mean Corpuscular Hemoglobin 29.8 pg (28.0-32.0); Mean Corpuscular Hgb Conc. 34.5 g/dL (32.0-36.0); Mean Corpuscular Volume 86.4 fL (80.0-100.0); Monocytes # (auto) 1.1 10 ^3/uL (0-1.3); Monocytes % (auto) 9.1 % (0.0-12.0); Neutrophils # (auto) 9.4 10 ^3/uL (1.6-8.6); Neutrophils % (auto) 81.5 % (37.0-80.0); Nucleated Red Blood Cells % 0.1 %; Red Blood Cells 3.99 10^6/uL (4.0-5.20); White Blood Cell 11.6 10^3/uL (4.4-10.8)
[2021-09-14 04:37] LABS: Albumin 3.2 g/dL (3.4-5.0); BUN/Creatinine Ratio 24.5; Calcium 8.5 mg/dL (8.5-10.1); Potassium 3.1 mmol/L (3.5-5.1)
[2021-09-14 04:40] LABS: Bilirubin, Total 0.7 mg/dL (0.2-1.0); Total Protein 7.3 g/dL (6.4-8.2)
[2021-09-14] MEDS ORDERED: POTASSIUM EFFERVESENT TAB 25 MEQ PO ONE ×2 (06:00→08:15)
[2021-09-14] MEDS ORDERED: POTASSIUM CHL 20 Meq TABLET PO ONE (08:00)
[2021-09-14] MEDS: ENOXAPARIN SOD 40 MG/0.4 ML SYRINGE SC SCH ×2 (10:00→10:01)
[2021-09-14] MEDS: DOPamine 1600MCG/ML D5W 250 ML IV SCH ×2 (11:15→13:02)
[2021-09-15] VITALS (69 sets, daily range): BP systolic 97–184; BP diastolic 47–78
[2021-09-15 04:59] LABS: Basophils # (auto) 0.1 10 ^3/uL (0-0.2); Basophils % (auto) 0.6 % (0.0-2.0); Eosinophils # (auto) 0 10 ^3/uL (0-0.8); Eosinophils % (auto) 0.4 % (0.0-7.0); Hematocrit 36.1 % (36.0-46.0); Hemoglobin 12.5 g/dL (12.2-16.2); Lymphocytes # (auto) 1.3 10 ^3/uL (0.4-5.4); Lymphocytes % (auto) 12.1 % (10.0-50.0); Mean Corpuscular Hemoglobin 30.3 pg (28.0-32.0); Mean Corpuscular Hgb Conc. 34.4 g/dL (32.0-36.0); Monocytes # (auto) 1.1 10 ^3/uL (0-1.3); Monocytes % (auto) 9.7 % (0.0-12.0); Neutrophils # (auto) 8.4 10 ^3/uL (1.6-8.6); Neutrophils % (auto) 77.2 % (37.0-80.0); Nucleated Red Blood Cells % 0.2 %; Red Blood Cells 4.11 10^6/uL (4.0-5.20); Red Cell Distribution Width 18.3 % (11.8-14.3); White Blood Cell 10.9 10^3/uL (4.4-10.8)
[2021-09-15 05:16] LABS: Calcium 9.2 mg/dL (8.5-10.1); Magnesium 2.5 mg/dL (1.6-2.6); Potassium 3.8 mmol/L (3.5-5.1)
[2021-09-15 05:21] LABS: INR 1.16 (0.9-1.15); Partial Thromboplastin Time 27.9 sec (23.6-33.0)
[2021-09-15 05:45] LABS: BUN/Creatinine Ratio 21.7
[2021-09-15] MEDS ORDERED: VANCOMYCIN HCL 1000 MG VL ONE (14:05)
[2021-09-15] MEDS ORDERED: fentaNYL CITRATE 100 MCG/2 ML VL ONE (14:06)
[2021-09-15] MEDS ORDERED: VANCOMYCIN 1GM/250ML 250 ML IV ONE (14:06)
[2021-09-15] MEDS ORDERED: LIDOCAINE 2%HCL (LOCAL ANESTH.) INJ 10ml MDV ONE (14:06)
[2021-09-15] MEDS ORDERED: MIDAZOLAM HCL 2MG/2ML 2ml VIAL (1mg/ml) ONE (14:06)
[2021-09-16] VITALS (21 sets, daily range): BP systolic 114–159; BP diastolic 53–73
[2021-09-16 04:15] LABS: Basophils # (auto) 0.1 10 ^3/uL (0-0.2); Basophils % (auto) 0.4 % (0.0-2.0); Eosinophils # (auto) 0 10 ^3/uL (0-0.8); Eosinophils % (auto) 0.3 % (0.0-7.0); Hematocrit 38.2 % (36.0-46.0); Hemoglobin 12.7 g/dL (12.2-16.2); Lymphocytes # (auto) 1.3 10 ^3/uL (0.4-5.4); Lymphocytes % (auto) 9.3 % (10.0-50.0); Mean Corpuscular Hgb Conc. 33.4 g/dL (32.0-36.0); Mean Corpuscular Volume 89.8 fL (80.0-100.0); Monocytes # (auto) 1.2 10 ^3/uL (0-1.3); Monocytes % (auto) 8.6 % (0.0-12.0); Neutrophils # (auto) 11.5 10 ^3/uL (1.6-8.6); Neutrophils % (auto) 81.4 % (37.0-80.0); Nucleated Red Blood Cells % 0.1 %; Red Blood Cells 4.25 10^6/uL (4.0-5.20); Red Cell Distribution Width 18.5 % (11.8-14.3); White Blood Cell 14.1 10^3/uL (4.4-10.8)
[2021-09-16 04:33] LABS: BUN/Creatinine Ratio 22.7; Calcium 9.3 mg/dL (8.5-10.1); Potassium 3.8 mmol/L (3.5-5.1)
[2021-09-16] MEDS ORDERED: APIXABAN 5 MG TAB PO SCH (10:00)
[2021-09-16] MEDS ORDERED: ACETAMINOPHEN 500 MG TAB PO PRN (14:00)
[2021-09-17 05:00] VITALS: BP 120/53
[2021-09-17 07:16] LABS: Basophils # (auto) 0 10 ^3/uL (0-0.2); Basophils % (auto) 0.3 % (0.0-2.0); Eosinophils # (auto) 0.1 10 ^3/uL (0-0.8); Eosinophils % (auto) 0.5 % (0.0-7.0); Hematocrit 35.7 % (36.0-46.0); Lymphocytes # (auto) 1.2 10 ^3/uL (0.4-5.4); Lymphocytes % (auto) 8.9 % (10.0-50.0); Mean Corpuscular Hemoglobin 29.8 pg (28.0-32.0); Mean Corpuscular Hgb Conc. 33.6 g/dL (32.0-36.0); Mean Corpuscular Volume 88.7 fL (80.0-100.0); Monocytes % (auto) 7.7 % (0.0-12.0); Neutrophils # (auto) 10.9 10 ^3/uL (1.6-8.6); Neutrophils % (auto) 82.6 % (37.0-80.0); Red Blood Cells 4.03 10^6/uL (4.0-5.20); Red Cell Distribution Width 18.3 % (11.8-14.3); White Blood Cell 13.2 10^3/uL (4.4-10.8)
[2021-09-17 07:48] LABS: Calcium 8.9 mg/dL (8.5-10.1); Potassium 3.4 mmol/L (3.5-5.1)
[2021-09-17 07:51] LABS: BUN/Creatinine Ratio 20.7
[2021-09-17] MEDS ORDERED: POTASSIUM EFFERVESENT TAB 25 MEQ PO ONE (08:30)
[2021-09-17 09:00] VITALS: BP 178/80
[2021-09-17 13:00] VITALS: BP 134/94
[2021-09-17 17:00] VITALS: BP 158/70
[2021-09-17 19:10] VITALS: BP 134/94
== END 2021-09-17 21:00 | DRG 242 ==
LOC: ER 09:17 → EDBD 09:17 → OVERFLOW 15:01 → ICU WEST 16:51 → TELE-EAST 09-16 22:55
PROVIDERS: ADMIT Internal Medicine; ATTEND Internal Medicine
PROC: 05HC33Z Insertion of Infusion Device into Left Basilic Vein, Percutaneous Approach (ICD-10-PCS; 2021-09-14)
PROC: B54NZZA Ultrasonography of Left Upper Extremity Veins, Guidance (ICD-10-PCS; 2021-09-14)
PROC: 0JH606Z Insertion of Pacemaker, Dual Chamber into Chest Subcutaneous Tissue and Fascia, Open Approach (ICD-10-PCS; principal; 2021-09-15)
PROC: 02HK3JZ Insertion of Pacemaker Lead into Right Ventricle, Percutaneous Approach (ICD-10-PCS; 2021-09-15)
PROC: 02H63JZ Insertion of Pacemaker Lead into Right Atrium, Percutaneous Approach (ICD-10-PCS; 2021-09-15)
DX: I49.5 Sick sinus syndrome (principal); I21.A1 Myocardial infarction type 2; N17.9 Acute kidney failure, unspecified; I50.42 Chronic combined systolic (congestive) and diastolic (congestive) heart failure; D68.69 Other thrombophilia; J93.83 Other pneumothorax; S09.90XA Unspecified injury of head, initial encounter; D72.829 Elevated white blood cell count, unspecified; E78.5 Hyperlipidemia, unspecified; F03.90 Unspecified dementia, unspecified severity, without behavioral disturbance, psychotic disturbance, mood disturbance, and anxiety; W18.39XA Other fall on same level, initial encounter; E11.9 Type 2 diabetes mellitus without complications; Z20.822 Contact with and (suspected) exposure to COVID-19; I11.0 Hypertensive heart disease with heart failure; I48.91 Unspecified atrial fibrillation; Z88.8 Allergy status to other drugs, medicaments and biological substances; Z79.01 Long term (current) use of anticoagulants; Z79.899 Other long term (current) drug therapy; Y93.89 Activity, other specified; Y92.89 Other specified places as the place of occurrence of the external cause; Y99.8 Other external cause status
CPT/HCPCS: 36415; 70450; 71045; 71250; 74176; 80048; 80053; 81001; 83735; 83880; 84484; 85025; 85610; 85730; 86850; 86900; 86901; 87081; 93005; 93306; 94640; 96365; 96375; 96376; 99152; 99153; C1785; G0378; J2001; J2250

== ENCOUNTER 2021-10-12 05:23 | Inpatient (IN) | payer MEDICARE, OTHER ==
[~2021-10-12] VITALS: Ht 162.6 cm; Wt 49.9 kg
[2021-10-12 07:08] LABS: Basophils # (auto) 0 10 ^3/uL (0-0.2); Basophils % (auto) 0.1 % (0.0-2.0); Eosinophils # (auto) 0 10 ^3/uL (0-0.8); Hematocrit 41.6 % (36.0-46.0); Hemoglobin 14.1 g/dL (12.2-16.2); Lymphocytes % (auto) 3.9 % (10.0-50.0); Mean Corpuscular Hemoglobin 29.5 pg (28.0-32.0); Mean Corpuscular Hgb Conc. 33.9 g/dL (32.0-36.0); Mean Corpuscular Volume 86.8 fL (80.0-100.0); Monocytes # (auto) 1.4 10 ^3/uL (0-1.3); Monocytes % (auto) 5.4 % (0.0-12.0); Neutrophils # (auto) 23.6 10 ^3/uL (1.6-8.6); Neutrophils % (auto) 90.6 % (37.0-80.0); Nucleated Red Blood Cells % 0.1 %; Red Blood Cells 4.79 10^6/uL (4.0-5.20); White Blood Cell 26.1 10^3/uL (4.4-10.8)
[2021-10-12 07:28] LABS: Potassium 4.4 mmol/L (3.5-5.1)
[2021-10-12] MEDS ORDERED: cefTRIAXone 1GM/50ML D5W 50 ML IV ONE (07:30)
[2021-10-12 07:36] LABS: Albumin 3.1 g/dL (3.4-5.0); BUN/Creatinine Ratio 25.7; Bilirubin, Total 0.7 mg/dL (0.2-1.0); Calcium 8.8 mg/dL (8.5-10.1); Total Protein 8.2 g/dL (6.4-8.2)
[2021-10-12] MEDS ORDERED: ENOXAPARIN SOD 60 MG/0.6 ML SYRINGE SC ONE (08:45)
[2021-10-12] MEDS ORDERED: SODIUM CHLORIDE 0.9% 1,000 ML IV ONE ×2 (09:00→10:30)
[2021-10-12 09:10] LABS: Lactic Acid w/Reflex 3.9 mmol/L (0.4-2.0)
[2021-10-12 11:34] LABS: Urine Bacteria MANY /hpf (None Seen); Urine Blood 1+ /uL (Negative); Urine Hyaline Cast MANY /lpf (0 - 2); Urine Mucus FEW (None Seen); Urine Specific Gravity 1.018 (1.001-1.035); Urine WBC 17 /hpf (0 - 5)
[2021-10-12] MEDS ORDERED: NOREPINEPHRINE 8 MG/250ML KIT 250 ML IV ONE ×2 (14:20→14:22)
[2021-10-12] MEDS: NOREPINEPHRINE 8 MG/250ML KIT 250 ML IV SCH ×2 (14:21→14:37)
[2021-10-12] MEDS ORDERED: MORPHINE SULFATE INJ 2 MG/ml SYRG IV PRN ×2 (14:45→16:30)
[2021-10-12] MEDS ORDERED: NITROGLYCERIN 0.4 MG SL TAB SL PRN (14:45)
[2021-10-12] MEDS ORDERED: DOPamine 1600MCG/ML D5W 250 ML IV SCH ×2 (15:15→21:15)
[2021-10-12] MEDS ORDERED: PHENYLEPHRINE INJ 40 MG in SODIUM CHL 0.9% 246 ML IV SCH (16:00)
[2021-10-12] MEDS ORDERED: SODIUM CHLORIDE 0.9% 1,500 ML IV ONE (16:30)
[2021-10-12] MEDS ORDERED: LORazepam 2MG/ML-1ML VIAL IV PRN ×2 (16:30→17:30)
[2021-10-12] MEDS ORDERED: VANCOMYCIN PER PHARMACY 1,000 MG IV SCH (16:30)
[2021-10-12] MEDS ORDERED: VANCOMYCIN 1GM/250ML 250 ML IV ONE (16:45)
[2021-10-12] MEDS ORDERED: D5W/LACTATED RINGERS 1,000 ML IV SCH (17:30)
[2021-10-12] MEDS ORDERED: ONDANSETRON HCL 4 MG/2 ML VIAL IV PRN (17:30)
[2021-10-12] MEDS ORDERED: DOCUSATE SOD 100 MG CAP PO PRN (17:30)
[2021-10-12] MEDS ORDERED: PANTOPRAZOLE 40 MG/10 ML VIAL INJ IV ONE (17:45)
[2021-10-12] MEDS ORDERED: PIPERACILLIN-TAZOB 3.375GM 100 ML IV ONE (18:00)
[2021-10-12] MEDS ORDERED: PIPERACILLIN-TAZOB 3.375GM 100 ML IV SCH (18:00)
[2021-10-12 20:44] LABS: INR 1.78 (0.9-1.15); Partial Thromboplastin Time 45.4 sec (23.6-33.0)
[2021-10-12] MEDS ORDERED: MIDAZOLAM DRIP 50 mg/50mL 50 ML IV ONE (20:44)
[2021-10-12] MEDS ORDERED: MIDAZOLAM DRIP 50 mg/50mL 50 ML IV SCH (21:15)
[2021-10-12 21:17] LABS: Phosphorus 8.5 mg/dL (2.5-4.90)
[2021-10-12] MEDS ORDERED: EPINEPHrine HCL 250 ML IV ONE (21:33)
[2021-10-12] MEDS ORDERED: ALBUMIN 5% 250 ML IV ONE (21:45)
[2021-10-12] MEDS ORDERED: EPINEPHrine HCL 250 ML IV SCH (22:00)
[2021-10-12] MEDS ORDERED: PANTOPRAZOLE 40 MG/10 ML VIAL INJ IV SCH (22:00)
[2021-10-12 22:43] VITALS: BP 63/40
[2021-10-12 22:52] VITALS: BP 41/20
[2021-10-12] MEDS ORDERED: PHENYLEPHRINE IV 250 ML IV ONE (22:53)
[2021-10-12] MEDS ORDERED: PHENYLEPHRINE HCL 10 MG/ML VL ONE (22:55)
[2021-10-12] MEDS ORDERED: VASOPRESSIN 20 UNIT/ML ONE (23:09)
[2021-10-12 23:18] VITALS: BP 149/122
[2021-10-12 23:47] VITALS: BP 61/42
[2021-10-13] MEDS ORDERED: PIPERACILLIN-TAZOB 2.25GM 50 ML IV SCH
[2021-10-13 01:24] LABS: Albumin 2.2 g/dL (3.4-5.0); Alkaline Phosphatase 247 U/L (45-117); Anion Gap 27 (5-15); BUN/Creatinine Ratio 23.7; Bilirubin, Total 0.7 mg/dL (0.2-1.0); Blood Urea Nitrogen 71 mg/dL (7-18); Calcium 7.6 mg/dL (8.5-10.1); Chloride 112 mmol/L (98-107); GFR African American 19 mL/min; GFR Non-African American 16 mL/min; Glucose 177 mg/dL (74-106); Sodium 146 mmol/L (136-145); Total Protein 5.6 g/dL (6.4-8.2)
[2021-10-13] MEDS ORDERED: EPINEPHrine HCL 1 MG/10 ML SYRG ONE (01:35)
[2021-10-13] MEDS ORDERED: EPINEPHrine HCL 1 MG/10 ML SYRG IV ONE (02:29)
[2021-10-13] MEDS ORDERED: DEXTROSE (50%) 50ML SYRG IV ONE (02:29)
[2021-10-13] MEDS ORDERED: DOPamine 1600mCg/ml 400MG/250ml NSorD5 KIT/BAG IV ONE (02:29)
[2021-10-13] MEDS ORDERED: SODIUM BICARBONATE 8.4 % INJ 50ML VIAL IV ONE (02:29)
[2021-10-13] MEDS ORDERED: ATROPINE SULFATE 1 MG/1 ML VIAL IV ONE (02:29)
[2021-10-13 02:32] LABS: Alanine Aminotransferase 4903 U/L (13-56)
[2021-10-13 02:33] LABS: Carbon Dioxide 7 mmol/L (21-32)
[2021-10-13 02:34] LABS: Lactic Acid w/Reflex 17.4 mmol/L (0.4-2.0)
[2021-10-13 03:10] LABS: Aspartate Aminotransferase > 10000 U/L (15-37)
== END 2021-10-13 02:30 | DRG 871 ==
LOC: EDBD 05:23 → ER 05:23 → TELE 14:36 → DOU IN ICU 22:18 → ICU CENTRL 22:27
PROVIDERS: ADMIT Hospitalist; ATTEND Hospitalist
PROC: 5A12012 Performance of Cardiac Output, Single, Manual (ICD-10-PCS; principal; 2021-10-12)
DX: A41.9 Sepsis, unspecified organism (principal); G93.41 Metabolic encephalopathy; J18.0 Bronchopneumonia, unspecified organism; R65.21 Severe sepsis with septic shock; I21.A1 Myocardial infarction type 2; N17.0 Acute kidney failure with tubular necrosis; I13.0 Hypertensive heart and chronic kidney disease with heart failure and stage 1 through stage 4 chronic kidney disease, or unspecified chronic kidney disease; I48.20 Chronic atrial fibrillation, unspecified; I50.22 Chronic systolic (congestive) heart failure; N17.9 Acute kidney failure, unspecified; N18.4 Chronic kidney disease, stage 4 (severe); N39.0 Urinary tract infection, site not specified; I46.9 Cardiac arrest, cause unspecified; E78.5 Hyperlipidemia, unspecified; G30.9 Alzheimer's disease, unspecified; F02.80 Dementia in other diseases classified elsewhere, unspecified severity, without behavioral disturbance, psychotic disturbance, mood disturbance, and anxiety; K80.20 Calculus of gallbladder without cholecystitis without obstruction; B18.2 Chronic viral hepatitis C; K52.9 Noninfective gastroenteritis and colitis, unspecified; R57.1 Hypovolemic shock; Z79.01 Long term (current) use of anticoagulants; Z95.0 Presence of cardiac pacemaker
CPT/HCPCS: 36415; 36600; 70450; 71045; 76705; 80053; 81001; 82805; 83605; 83735; 83880; 84100; 84443; 84484; 85007; 85025; 85027; 85379; 85610; 85730; 86850; 86900; 86901; 87040; 87070; 87081; 87086; 87205; 92950; 93005; 96361; 96365; 96372; 99291; C9113; G0378; J0171; J0461; J0696; J2250; J2543